=== PATIENT | male | born 1990 | race Caucasian/White ===

== ENCOUNTER 2019-02-18 18:11 | Emergency (ER) | payer MEDICAID ==
[2019-02-18 18:33] VITALS: BP 121/85
--- NOTE | 2019-02-18 18:47 | ED Physician Documentation ---
History of Present Illness - Stated complaint Stated Complaint: 'S NOTE - Chief complaint Chief Complaint: General - History obtained from History obtained from: Patient - History of Present Illness Timing: Other (He has been sick for a little over 48 hours with cough, body aches, fevers, chills, myalgias. Mostly he is worried because he needs a note to stay out of work.) Review of Systems Constitutional: reports: Fever, Chills, Myalgias, Fatigue Nose: reports: Rhinorrhea / runny nose Throat: denies: Sore throat Cardiac: denies: Chest pain / pressure, Palpitations Respiratory: reports: Cough. denies: Dyspnea PD PAST MEDICAL HISTORY - Present Medications Home Medications: Ambulatory Orders Medication Instructions Recorded Confirmed Albuterol Sulf [Ventolin Hfa 1 - 2 puffs INH Q4HR PRN #1 inhaler 02/18/19 Inhaler] guaiFENesin/CODEINE [Robitussin AC] 5 - 10 ml PO Q6H PRN #120 ml 02/18/19 - Allergies Allergies/Adverse Reactions: Allergies Allergy/AdvReac Type Severity Reaction Status Date / Time Penicillins Allergy Anaphylaxis Verified 02/18/19 18:33 PD ED PE NORMAL - Vitals Vital signs reviewed: Yes - General General: Alert and oriented X 3, No acute distress - HEENT HEENT: PERRL, EOMI - Neck Neck: Supple, no meningeal sign, No bony TTP - Cardiac Cardiac: RRR, No murmur - Respiratory Respiratory: No respiratory distress, Other (Rhonchorous at the bases and bilateral wheezing without other focal findings to suggest pneumonia) - Abdomen Abdomen: Non tender - Back Back: No CVA TTP, No spinal TTP - Derm Derm: No rash - Neuro Neuro: Alert and oriented X 3, Normal speech Results - Vitals Vitals: Vital Signs - 24 hr 02/18/19 18:31 Temperature 36.7 C Heart Rate 118 H Respiratory 18 Rate Blood Pressure 121/85 H O2 Saturation 97 PD MEDICAL DECISION MAKING - ED course ED course: 28-year-old gentleman with clinical pneumonia, he also has some bronchitis which by the pattern and exam is not suspected to be bacterial. He is treated symptomatically and given the work note he needs. Departure - Departure Disposition: Home, Self Care Clinical Impression: Flu-like symptoms, Bronchitis Condition: Good Record reviewed to determine appropriate education?: Yes Instructions: ED Bronchitis Asthmatic Prescriptions: Albuterol Sulf [Ventolin Hfa Inhaler] 1 - 2 puffs INH Q4HR PRN #1 inhaler PRN Reason: Shortness Of Air/Wheezing guaiFENesin/CODEINE [Robitussin AC] 5 - 10 ml PO Q6H PRN #120 ml PRN Reason: Cough Comments: Return if you worsen or are not better in about 3 days time. Forms: Activity restrictions
== END 2019-02-18 18:55 | disposition home or self-care (01) ==
LOC: ED 18:11
DX: J18.9 Pneumonia, unspecified organism (principal); J40 Bronchitis, not specified as acute or chronic
CPT/HCPCS: 99282; 99283

== ENCOUNTER 2019-08-12 00:36 | Outpatient (CLI) | payer SELFPAY | END 2019-08-12 00:37 | disposition EMS.NT | LOC: EMS 00:36 | PROVIDERS: ATTEND Surgery | DX: R44.3 Hallucinations, unspecified (principal) ==